=== PATIENT | male | born 1955 | race Caucasian/White ===

== ENCOUNTER 2019-10-21 13:00 | Outpatient (CLI) | payer MEDICAID | END 2019-10-21 13:01 | disposition short-term general hospital (02) | LOC: EMS 13:00 | PROVIDERS: ATTEND Surgery | DX: R10.13 Epigastric pain (principal); R11.2 Nausea with vomiting, unspecified; R42 Dizziness and giddiness; R61 Generalized hyperhidrosis | CPT/HCPCS: A0425; A0427; A0999 ==

== ENCOUNTER 2020-01-20 06:52 | Emergency (ER) | payer MEDICAID ==
[2020-01-20 07:17] LABS: BASOPHILS % (AUTO) 0.4 %; HGB - HEMOGLOBIN 14.6 g/dL (14.0-18.0); LYMPHOCYTES % (AUTO) 3.2 %; MEAN CORPUSCULAR HEMOGLOBIN 32.7 pg (27.0-31.0); MEAN PLATELET VOLUME 9.4 fL (7.4-11.4); MONOCYTES % (AUTO) 7.2 %; NEUTROPHILS % (AUTO) 88.3 %; PLT - PLATELET COUNT 243 10^3/uL (130-450); RED BLOOD COUNT 4.47 10^6/uL (4.70-6.10); RED CELL DISTRIBUTION WIDTH 14.3 % (12.0-15.0); WHITE BLOOD COUNT 23.3 x10^3/uL (4.8-10.8)
--- NOTE | 2020-01-20 07:21 | ED Physician Documentation ---
PD HPI MHE - Stated complaint Stated Complaint: MHE - Chief complaint Chief Complaint: MHE - History obtained from History obtained from: Patient, Police - History of Present Illness Primary symptom: Psychosis Timing - onset: Unknown Pain level max: 0 Pain level now: 0 Contributing factors: Substance abuse - ETOH, Substance abuse - drugs Recently seen: Not recently seen - Additional information Additional information: 64-year-old male presents to the emergency department stating that he is being stalked by a special agent task force that shoots him with tasers. He states that this occurs when he is in his RV. He states that first they flash a red light at him and then a blue light and that is when they "shoot". He states he went running through the [place] this morning to try to escape them. Patient states that he does use alcohol regularly. He also admits to marijuana use. He states he has not used methamphetamines in "a long time". Patient was acting erratically, therefore brought in by police. Review of Systems Unable to obtain: Confused, Uncooperative Constitutional: denies: Fever, Chills Respiratory: denies: Cough GI: denies: Vomiting, Diarrhea Skin: denies: Rash Musculoskeletal: denies: Neck pain, Back pain Neurologic: denies: Headache PD PAST MEDICAL HISTORY - Past Medical History Past Medical History: Yes HEENT: Chronic sinusitis - Past Surgical History Past Surgical History: No - Present Medications Home Medications: Ambulatory Orders Medication Instructions Recorded Confirmed No Known Home Medications 01/20/20 01/20/20 - Allergies Allergies/Adverse Reactions: Allergies Allergy/AdvReac Type Severity Reaction Status Date / Time No Known Drug Allergies Allergy Verified 01/20/20 07:08 - Social History Does the pt smoke?: Yes Smoking Status: Current every day smoker Does the pt drink ETOH?: Yes ETOH Use: Beer Does the pt have substance abuse?: Yes Substance Use and Type: Marijuana - Family History Family history: reports: Non contributory - Immunizations Immunizations are current?: Yes - POLST Patient has POLST: No PD ED PE NORMAL - Vitals Vital signs reviewed: Yes - General General: Alert and oriented X 3, No acute distress, Well developed/nourished - HEENT HEENT: PERRL, Moist mucous membranes - Neck Neck: Supple, no meningeal sign - Cardiac Cardiac: RRR, Strong equal pulses - Respiratory Respiratory: No respiratory distress, Clear bilaterally - Abdomen Abdomen: Soft, Non tender, Non distended - Derm Derm: Warm and dry - Extremities Extremities: No edema, Other (skin breakdown to both feet with no signs of infection) - Neuro Neuro: Alert and oriented X 3 - Psych Psych: Other (clear speech, flight of ideas present, paranoid.) Results - Vitals Vitals: Vital Signs - 24 hr 01/20/20 01/20/20 01/20/20 07:02 07:23 09:00 Temperature 36.6 C 37 C Heart Rate 91 92 81 Respiratory 14 20 18 Rate Blood Pressure 123/88 H 154/79 H 133/85 H O2 Saturation 93 93 98 01/20/20 01/20/20 14:15 18:44 Temperature 36.8 C 37.2 C Heart Rate 78 67 Respiratory 18 16 Rate Blood Pressure 119/73 126/71 O2 Saturation 96 96 Oxygen O2 Source Room air - Labs Labs: Laboratory Tests 01/20/20 01/20/20 01/20/20 07:11 07:11 07:11 WBC 23.3 H RBC 4.47 L Hgb 14.6 Hct 45.6 MCV 102.0 H MCH 32.7 H MCHC 32.0 RDW 14.3 Plt Count 243 MPV 9.4 Neut # (Auto) Not Reportable Lymph # (Auto) Not Reportable [place] # (Auto) Not Reportable Eos # (Auto) Not Reportable Baso # (Auto) Not Reportable Absolute Nucleated RBC Not Reportable Total Counted 100 Band Neuts % (Manual) 8 Abnorm Lymph % (Manual) 0 Nucleated RBC % Not Reportable Neutrophils # (Manual) 21.9 H Lymphocytes # (Manual) 0.5 L Monocytes # (Manual) 0.9 Eosinophils # (Manual) 0.0 Basophils # (Manual) 0.0 Differential Comment MANUAL DIFFERENTIAL Manual Slide Review WBC Morphology NORMAL APPEARANCE Platelet Estimate NORMAL (130-450,000) Platelet Morphology NORMAL APPEARANCE RBC Morph Micro Appear NORMAL APPEARANCE Sodium 136 Potassium 3.9 Chloride 99 L Carbon Dioxide 18 L Anion Gap 19.0 H BUN 39 H Creatinine 1.7 H Estimated GFR (MDRD) 41 L Glucose 84 Calcium 9.0 Total Bilirubin 1.2 H AST 42 ALT 26 Alkaline Phosphatase 106 Total Creatine Kinase Total Protein 7.8 Albumin 5.0 Globulin 2.8 Albumin/Globulin Ratio 1.8 Lipase 24 TSH 0.85 Urine Color Urine Clarity Urine pH Ur Specific [place] Urine Protein Urine Glucose (UA) Urine Ketones Urine Occult Blood Urine Nitrite Urine Bilirubin Urine Urobilinogen Ur Leukocyte Esterase Urine RBC Urine WBC Ur Squamous Epith Cells Urine Bacteria Ur Microscopic Review Urine Culture Comments Nasal Adenovirus (PCR) Nasal B. parapertussis DNA (PCR) Nasal Coronavir 229E PCR Nasal Coronavir HKU1 PCR Nasal Coronavir NL63 PCR Nasal Coronavir OC43 PCR Nasal Enterovir/Rhinovir PCR Nasal Influenza B PCR Nasal Influenza A PCR Nasal Parainfluen 1 PCR Nasal Parainfluen 2 PCR Nasal Parainfluen 3 PCR Nasal Parainfluen 4 PCR Nasal RSV (PCR) Nasal B.pertussis DNA PCR Nasal C.pneumoniae (PCR) Moustapha Human Metapneumo PCR Nasal M.pneumoniae (PCR) Nasal SARS-CoV-2 (PCR) Salicylates < 6.0 Urine Opiates Screen Ur Oxycodone Screen Urine Methadone Screen Ur Propoxyphene Screen Acetaminophen < 10 L Ur Barbiturates Screen Ur Tricyclics Screen Ur Phencyclidine Scrn Ur Amphetamine Screen U Methamphetamines Scrn U Benzodiazepines Scrn Urine Cocaine Screen U Cannabinoids Screen Ethyl Alcohol < 5.0 01/20/20 01/20/20 01/20/20 07:11 08:30 14:00 WBC RBC Hgb Hct MCV MCH MCHC RDW Plt Count MPV Neut # (Auto) Lymph # (Auto) [place] # (Auto) Eos # (Auto) Baso # (Auto) Absolute Nucleated RBC Total Counted Band Neuts % (Manual) Abnorm Lymph % (Manual) Nucleated RBC % Neutrophils # (Manual) Lymphocytes # (Manual) Monocytes # (Manual) Eosinophils # (Manual) Basophils # (Manual) Differential Comment Manual Slide Review WBC Morphology Platelet Estimate Platelet Morphology RBC Morph Micro Appear Sodium Potassium Chloride Carbon Dioxide Anion Gap BUN Creatinine Estimated GFR (MDRD) Glucose Calcium Total Bilirubin AST ALT Alkaline Phosphatase Total Creatine Kinase 960 H Total Protein Albumin Globulin Albumin/Globulin Ratio Lipase TSH Urine Color YELLOW Urine Clarity CLEAR Urine pH 5.0 Ur Specific [place] >=1.030 H Urine Protein NEGATIVE Urine Glucose (UA) NEGATIVE Urine Ketones 15 H Urine Occult Blood SMALL H Urine Nitrite NEGATIVE Urine Bilirubin NEGATIVE Urine Urobilinogen 0.2 (NORMAL) Ur Leukocyte Esterase NEGATIVE Urine RBC 0-5 Urine WBC 0-3 Ur Squamous Epith Cells NONE SEEN Urine Bacteria Rare Ur Microscopic Review INDICATED Urine Culture Comments NOT INDICATED Nasal Adenovirus (PCR) NOT DETECTED Nasal B. parapertussis DNA (PCR) NOT DETECTED Nasal Coronavir 229E PCR NOT DETECTED Nasal Coronavir HKU1 PCR NOT DETECTED Nasal Coronavir NL63 PCR NOT DETECTED Nasal Coronavir OC43 PCR NOT DETECTED Nasal Enterovir/Rhinovir PCR NOT DETECTED Nasal Influenza B PCR NOT DETECTED Nasal Influenza A PCR NOT DETECTED Nasal Parainfluen 1 PCR NOT DETECTED Nasal Parainfluen 2 PCR NOT DETECTED Nasal Parainfluen 3 PCR NOT DETECTED Nasal Parainfluen 4 PCR NOT DETECTED Nasal RSV (PCR) NOT DETECTED Nasal B.pertussis DNA PCR NOT DETECTED Nasal C.pneumoniae (PCR) NOT DETECTED Moustapha Human Metapneumo PCR NOT DETECTED Nasal M.pneumoniae (PCR) NOT DETECTED Nasal SARS-CoV-2 (PCR) NOT DETECTED Salicylates Urine Opiates Screen NEGATIVE Ur Oxycodone Screen NEGATIVE Urine Methadone Screen NEGATIVE Ur Propoxyphene Screen NEGATIVE Acetaminophen Ur Barbiturates Screen NEGATIVE Ur Tricyclics Screen NEGATIVE Ur Phencyclidine Scrn NEGATIVE Ur Amphetamine Screen POSITIVE H U Methamphetamines Scrn POSITIVE H U Benzodiazepines Scrn NEGATIVE Urine Cocaine Screen NEGATIVE U Cannabinoids Screen POSITIVE H Ethyl Alcohol 01/20/20 01/20/20 18:35 18:35 WBC 15.3 H RBC 3.92 L Hgb 13.0 L Hct 39.0 L MCV 99.5 H MCH 33.2 H MCHC 33.3 RDW 14.5 Plt Count 223 MPV 9.0 Neut # (Auto) Lymph # (Auto) [place] # (Auto) Eos # (Auto) Baso # (Auto) Absolute Nucleated RBC Total Counted Band Neuts % (Manual) Abnorm Lymph % (Manual) Nucleated RBC % Neutrophils # (Manual) Lymphocytes # (Manual) Monocytes # (Manual) Eosinophils # (Manual) Basophils # (Manual) Differential Comment Manual Slide Review Indicated WBC Morphology Platelet Estimate Platelet Morphology RBC Morph Micro Appear Sodium 134 L Potassium 4.3 Chloride 103 Carbon Dioxide 20 L Anion Gap 11.0 BUN 45 H Creatinine 1.3 H Estimated GFR (MDRD) 56 L Glucose 119 H Calcium 8.8 Total Bilirubin AST ALT Alkaline Phosphatase Total Creatine Kinase Total Protein Albumin Globulin Albumin/Globulin Ratio Lipase TSH Urine Color Urine Clarity Urine pH Ur Specific [place] Urine Protein Urine Glucose (UA) Urine Ketones Urine Occult Blood Urine Nitrite Urine Bilirubin Urine Urobilinogen Ur Leukocyte Esterase Urine RBC Urine WBC Ur Squamous Epith Cells Urine Bacteria Ur Microscopic Review Urine Culture Comments Nasal Adenovirus (PCR) Nasal B. parapertussis DNA (PCR) Nasal Coronavir 229E PCR Nasal Coronavir HKU1 PCR Nasal Coronavir NL63 PCR Nasal Coronavir OC43 PCR Nasal Enterovir/Rhinovir PCR Nasal Influenza B PCR Nasal Influenza A PCR Nasal Parainfluen 1 PCR Nasal Parainfluen 2 PCR Nasal Parainfluen 3 PCR Nasal Parainfluen 4 PCR Nasal RSV (PCR) Nasal B.pertussis DNA PCR Nasal C.pneumoniae (PCR) Moustapha Human Metapneumo PCR Nasal M.pneumoniae (PCR) Nasal SARS-CoV-2 (PCR) Salicylates Urine Opiates Screen Ur Oxycodone Screen Urine Methadone Screen Ur Propoxyphene Screen Acetaminophen Ur Barbiturates Screen Ur Tricyclics Screen Ur Phencyclidine Scrn Ur Amphetamine Screen U Methamphetamines Scrn U Benzodiazepines Scrn Urine Cocaine Screen U Cannabinoids Screen Ethyl Alcohol PD MEDICAL DECISION MAKING - ED course Complexity details: reviewed results, re-evaluated patient, considered differential, d/w patient ED course: 64-year-old male brought in by police today for acting erratically. He is positive for methamphetamines. Initially denied methamphetamine use, but now states that he last used 4 days ago. He did clear somewhat in the emergency department, but still states that he is been hijacked and is being tracked by a secret police force with [email or web address]. He still is extremely paranoid and is clear for psychiatric care. Patient did have leukocytosis and renal insufficiency, this was likely secondary to dehydration and methamphetamine use. IV fluids given. Labs improved with IV fluids. Patient will be signed out to the [facility] emergency department physician awaiting DCR evaluation Departure - Departure Clinical Impression: Dehydration, Renal insufficiency, Methamphetamine abuse, Paranoia Leukocytosis Qualifiers: Leukocytosis type: unspecified Qualified Code(s): D72.829 - Elevated white blood cell count, unspecified Psychosis Qualifiers: Psychosis type: unspecified psychosis type Qualified Code(s): F29 - Unspecified psychosis not due to a substance or known physiological condition Condition: Stable
[2020-01-20 07:23] LABS: ABNORMAL LYMPHS % (MANUAL) 0 %
[2020-01-20 07:34] LABS: ACETAMINOPHEN < 10 ug/mL (10-30); ALBUMIN/GLOBULIN RATIO 1.8 (1.0-2.2); ALKALINE PHOSPHATASE 106 IU/L (42-121); ALT ALANINE AMINOTRANSFERASE 26 IU/L (10-60); AST ASPARTATE AMINOTRANSFERASE 42 IU/L (10-42); BILIRUBIN,TOTAL 1.2 mg/dL (0.2-1.0); BUN - BLOOD UREA NITROGEN 39 mg/dL (6-20); CARBON DIOXIDE - CO2 18 mmol/L (21-32); CHLORIDE 99 mmol/L (101-111); CREATININE 1.7 mg/dL (0.6-1.2); GLUCOSE 84 mg/dL (70-100); LIPASE 24 U/L (22-51); SALICYLATE < 6.0 mg/dL; SODIUM 136 mmol/L (135-145); TOTAL PROTEIN 7.8 g/dL (6.7-8.2)
[2020-01-20] MEDS ORDERED: SODIUM CHLORIDE 0.9% 2,000 ML IV STA (07:52)
[2020-01-20 07:55] LABS: BAND NEUTROPHILS % (MANUAL) 8 %; DIFFERENTIAL COMMENT MANUAL DIFFERENTIAL; LYMPHOCYTES # (MANUAL) 0.5 10^3/uL (1.5-3.5); LYMPHOCYTES % (MANUAL) 2 %; MONOCYTES # (MANUAL) 0.9 10^3/uL (0.0-1.0); PLATELET ESTIMATE, MANUAL NORMAL (130-450,000) (NORMAL); PLATELET MORPHOLOGY NORMAL APPEARANCE (NORMAL); RBC MORPHOLOGY (MULTIPLE) NORMAL APPEARANCE (NORMAL)
[2020-01-20 09:34] LABS: C. PNEUMONIAE- RESP PCR PANEL NOT DETECTED
[2020-01-20 14:18] LABS: MUDS CUTOFF CONCENTRATIONS CUTOFF CONC BELOW:
[2020-01-20 14:20] LABS: BILIRUBIN,URINE NEGATIVE (NEGATIVE); GLUCOSE, URINE (UA) NEGATIVE (NEGATIVE); KETONES,URINE (UA) 15 mg/dL (NEGATIVE); LEUKOCYTE ESTERASE, URINE NEGATIVE (NEGATIVE); NITRITE,URINE NEGATIVE (NEGATIVE); OCCULT BLOOD,URINE SMALL (NEGATIVE); PROTEIN,URINE NEGATIVE (NEGATIVE); UROBILINOGEN,URINE 0.2 (NORMAL) E.U./dL (NORMAL)
[2020-01-20 14:21] LABS: CLARITY,URINE CLEAR (CLEAR)
[2020-01-20 14:29] LABS: BACTERIA,URINE Rare /HPF (None Seen); RBC,URINE 0-5 /HPF (0-5); SQUAMOUS EPITHELIAL CELL,UR NONE SEEN (<= Few)
[2020-01-20 14:33] LABS: AMPHETAMINE SCREEN,URINE POSITIVE (NEGATIVE); BENZODIAZEPINES SCREEN, URINE NEGATIVE (NEGATIVE); COCAINE SCREEN URINE NEGATIVE (NEGATIVE); METHADONE SCREEN, URINE NEGATIVE (NEGATIVE); METHAMPHETAMINES SCREEN, URINE POSITIVE (NEGATIVE); OPIATE SCREEN, URINE NEGATIVE (NEGATIVE); OXYCODONE SCREEN, URINE NEGATIVE (NEGATIVE); PROPOXYPHENE SCREEN, URINE NEGATIVE (NEGATIVE); TRICYCLIC ANTIDEPRESSANT,URINE NEGATIVE (NEGATIVE)
[2020-01-20] MEDS ORDERED: NICOTINE 14 MG PATCH TOP STA (16:37)
[2020-01-20 18:46] LABS: BASOPHILS % (AUTO) 0.3 %; EOSINOPHILS % (AUTO) 0.2 %; LYMPHOCYTES # (AUTO) 1.5 10^3/uL (1.5-3.5); LYMPHOCYTES % (AUTO) 9.5 %; MEAN CORPUSCULAR HEMOGLOBIN 33.2 pg (27.0-31.0); MEAN CORPUSCULAR HGB CONC 33.3 g/dL (32.0-36.0); MEAN CORPUSCULAR VOLUME 99.5 fL (80.0-94.0); MONOCYTES # (AUTO) 1.6 10^3/uL (0.0-1.0); MONOCYTES % (AUTO) 10.7 %; NEUTROPHILS % (AUTO) 78.6 %; PLT - PLATELET COUNT 223 10^3/uL (130-450); RED BLOOD COUNT 3.92 10^6/uL (4.70-6.10); RED CELL DISTRIBUTION WIDTH 14.5 % (12.0-15.0); WHITE BLOOD COUNT 15.3 x10^3/uL (4.8-10.8)
[2020-01-20 18:50] LABS: CALCIUM 8.8 mg/dL (8.5-10.3); CREATININE 1.3 mg/dL (0.6-1.2)
[2020-01-20 19:25] LABS: PLATELET ESTIMATE, MANUAL NORMAL (130-450,000) (NORMAL); PLATELET MORPHOLOGY NORMAL APPEARANCE (NORMAL); RBC MORPHOLOGY (MULTIPLE) NORMAL APPEARANCE (NORMAL)
[2020-01-20 19:26] LABS: DIFFERENTIAL COMMENT MANUAL=AUTO DIFF
[2020-01-21] MEDS ORDERED: IBUPROFEN 600 MG TABLET PO STA (02:06)
[2020-01-21] MEDS ORDERED: LORazepam 0.5 MG TABLET PO STA (02:06)
[2020-01-21 03:09] VITALS: BP 132/73
== END 2020-01-21 06:53 | disposition home or self-care (01) ==
LOC: ED 06:52
DX: F15.10 Other stimulant abuse, uncomplicated (principal); F10.10 Alcohol abuse, uncomplicated; F22 Delusional disorders; E86.0 Dehydration; N28.9 Disorder of kidney and ureter, unspecified; D72.829 Elevated white blood cell count, unspecified; I49.3 Ventricular premature depolarization; Z20.828 Contact with and (suspected) exposure to other viral communicable diseases; F17.200 Nicotine dependence, unspecified, uncomplicated
CPT/HCPCS: 0202U; 36415; 80048; 80053; 80306; 80307; 80320; 80329; 81001; 82550; 83690; 84443; 85025; 93005; 96360; 99283; 99284; A9270; 81003; 87086

== ENCOUNTER 2022-11-23 19:04 | Outpatient (CLI) | payer SELFPAY | END 2022-11-23 23:59 | disposition critical access hospital (66) | LOC: EMS 19:04 | DX: F10.90 Alcohol use, unspecified, uncomplicated (principal) | CPT/HCPCS: A0425; A0429 ==

== ENCOUNTER 2022-11-23 19:24 | Emergency (ER) | payer MEDICAID, OTHER ==
[2022-11-23] MEDS ORDERED: THIAMINE INJ 100 MG in SODIUM CHLORIDE 0.9% 50 ML IV STA (19:27)
--- NOTE | 2022-11-23 19:28 | ED Physician Documentation ---
PD HPI ALTERED MENTAL STATUS - Stated complaint Stated Complaint: FALL/ETOH - History obtained from History obtained from: Patient, EMS - Additional information Additional information: 66-year-old gentleman who is homeless drink more than usual tonight. He is a daily drinker admittedly but tonight drink vodka, fifth of it and that is not his usual. Subsequently had a couple of falls, no clear injury, but is intoxicated. He has no specific complaints but history is limited because of his intoxication. PD PAST MEDICAL HISTORY - Past Medical History HEENT: Chronic sinusitis - Past Surgical History Past Surgical History: No - Present Medications Home Medications: Ambulatory Orders Medication Instructions Recorded Confirmed No Known Home Medications 01/20/20 11/23/22 - Allergies Allergies/Adverse Reactions: Allergies Allergy/AdvReac Type Severity Reaction Status Date / Time No Known Drug Allergies Allergy Verified 11/23/22 19:39 - Social History Does the pt smoke?: Yes Smoking Status: Current every day smoker Does the pt drink ETOH?: Yes Does the pt have substance abuse?: Yes - Immunizations Immunizations are current?: Yes - POLST Patient has POLST: No PD ED PE NORMAL - Vitals Vital signs reviewed: Yes - General General: Other (He is disheveled, loud and intoxicated but friendly, slow to answer questions.) - HEENT HEENT: PERRL, EOMI (With nystagmus) - Neck Neck: Supple, no meningeal sign, No bony TTP - Cardiac Cardiac: RRR, No murmur - Respiratory Respiratory: No respiratory distress, Clear bilaterally - Abdomen Abdomen: Non tender - Male Male : Other (Incontinent of urine) - Neuro Eye Opening: Spontaneous Motor: Obeys Commands Verbal: Confused GCS Score: 14 Results - Vitals Vitals: Vital Signs - 24 hr 11/23/22 11/23/22 11/23/22 19:34 20:05 20:12 Temperature 35.9 C L Heart Rate 77 71 Respiratory 16 18 Rate Blood Pressure 120/81 H 137/75 H O2 Saturation 89 L 86 L 96 If not protocol 2 : Oxygen Flow, liters/minute 11/23/22 11/23/22 11/23/22 21:30 22:00 22:30 Temperature Heart Rate 71 72 74 Respiratory 16 15 16 Rate Blood Pressure 112/86 H 122/86 H 141/81 H O2 Saturation 94 94 98 If not protocol 2 2 2 : Oxygen Flow, liters/minute 11/23/22 11/23/22 11/23/22 23:00 23:45 23:53 Temperature Heart Rate 77 Respiratory 16 Rate Blood Pressure 118/81 H O2 Saturation 95 88 L 100 If not protocol 2 2 4 : Oxygen Flow, liters/minute 11/24/22 11/24/22 11/24/22 00:00 01:00 02:00 Temperature Heart Rate 76 73 73 Respiratory 16 16 16 Rate Blood Pressure 96/63 114/69 115/88 H O2 Saturation 98 95 100 If not protocol 4 2 2 : Oxygen Flow, liters/minute 11/24/22 11/24/22 11/24/22 03:00 04:00 04:30 Temperature Heart Rate 68 71 72 Respiratory 16 16 18 Rate Blood Pressure 107/60 152/89 H 134/88 H O2 Saturation 98 100 97 If not protocol 2 2 : Oxygen Flow, liters/minute 11/24/22 05:30 Temperature Heart Rate 88 Respiratory 18 Rate Blood Pressure 128/92 H O2 Saturation 100 If not protocol : Oxygen Flow, liters/minute Oxygen O2 Source Room air Oxygen Flow Rate 2 - Labs Labs: Laboratory Tests 11/23/22 11/23/22 11/23/22 19:39 19:39 20:01 WBC 10.4 RBC 4.60 L Hgb 15.0 Hct 46.3 MCV 100.7 H MCH 32.6 H MCHC 32.4 RDW 13.4 Plt Count 303 MPV 9.0 Neut # (Auto) Not Reportable Lymph # (Auto) Not Reportable [place] # (Auto) Not Reportable Eos # (Auto) Not Reportable Baso # (Auto) Not Reportable Absolute Nucleated RBC Not Reportable Total Counted 100 Band Neuts % (Manual) 0 Reactive Lymphs % (Man) 8 Abnorm Lymph % (Manual) 0 Nucleated RBC % Not Reportable Neutrophils # (Manual) 5.9 Lymphocytes # (Manual) 2.0 Monocytes # (Manual) 0.5 Eosinophils # (Manual) 1.7 H Basophils # (Manual) 0.3 H Differential Comment MANUAL DIFFERENTIAL Platelet Estimate NORMAL (130-450,000) Platelet Morphology NORMAL APPEARANCE RBC Morph Micro Appear 1+ MACROCYTOSIS Sodium 138 Potassium 4.4 Chloride 101 Carbon Dioxide 30 Anion Gap 7.0 BUN 38 H Creatinine 1.0 Estimated GFR (MDRD) 75 L Glucose 94 Calcium 9.5 Magnesium 2.3 Total Bilirubin 0.3 AST 18 ALT 16 Alkaline Phosphatase 97 Total Protein 7.3 Albumin 4.6 Globulin 2.7 Albumin/Globulin Ratio 1.7 Urine Opiates Screen NEGATIVE Ur Oxycodone Screen NEGATIVE Urine Methadone Screen NEGATIVE Ur Propoxyphene Screen NEGATIVE Ur Barbiturates Screen NEGATIVE Ur Tricyclics Screen NEGATIVE Ur Phencyclidine Scrn NEGATIVE Ur Amphetamine Screen NEGATIVE U Methamphetamines Scrn NEGATIVE U Benzodiazepines Scrn NEGATIVE Urine Cocaine Screen NEGATIVE U Cannabinoids Screen NEGATIVE Ethyl Alcohol 300.8 PD Medical Decision Making - ED course ED course: 66yo with etoh instox + fall. Will obs til sober CTH/Cspine. Care to Dr Palacios at 10p pending CTs and sobreity. Departure - Departure Disposition: 01 Home, Self Care Clinical Impression: Alcohol intoxication Qualifiers: Complication of substance-induced condition: uncomplicated Qualified Code(s): F10.920 - Alcohol use, unspecified with intoxication, uncomplicated Fall Qualifiers: Encounter type: initial encounter Qualified Code(s): W19.XXXA - Unspecified fall, initial encounter Condition: Good Record reviewed to determine appropriate education?: Yes Instructions: ED Alcohol Intoxication Comments: You are seen today for alcohol intoxication with a couple of falls. Your blood alcohol was 300. You should cut back your drinking. CT of the head and neck showed no bleeding in the brain. Call your doctor to arrange a follow-up appointment, make the next available appointment. In the interim, return anytime if worse or if new symptoms develop. Forms: PCP List Discharge Date/Time: 11/24/22 06:22
[2022-11-23 19:44] LABS: BASOPHILS % (AUTO) 0.5 %; EOSINOPHILS % (AUTO) 13.9 %; HCT - HEMATOCRIT 46.3 % (42.0-52.0); LYMPHOCYTES % (AUTO) 23.4 %; MEAN CORPUSCULAR HEMOGLOBIN 32.6 pg (27.0-31.0); MEAN CORPUSCULAR HGB CONC 32.4 g/dL (32.0-36.0); MEAN CORPUSCULAR VOLUME 100.7 fL (80.0-94.0); MONOCYTES % (AUTO) 5.3 %; NEUTROPHILS % (AUTO) 56.3 %; PLT - PLATELET COUNT 303 10^3/uL (130-450); RED CELL DISTRIBUTION WIDTH 13.4 % (12.0-15.0); WHITE BLOOD COUNT 10.4 x10^3/uL (4.8-10.8)
[2022-11-23 19:46] LABS: ABNORMAL LYMPHS % (MANUAL) 0 %; BAND NEUTROPHILS % (MANUAL) 0 %
[2022-11-23] MEDS ORDERED: THIAMINE 100 MG/1 ML 2 ML MDV ONE (19:53)
[2022-11-23 20:05] LABS: MUDS CUTOFF CONCENTRATIONS CUTOFF CONC BELOW:
[2022-11-23 20:05] LABS: ALBUMIN 4.6 g/dL (3.2-5.5); ALBUMIN/GLOBULIN RATIO 1.7 (1.0-2.2); BILIRUBIN,TOTAL 0.3 mg/dL (0.2-1.0); CALCIUM 9.5 mg/dL (8.5-10.3); ETOH - ETHANOL 300.8 mg/dL; MAGNESIUM 2.3 mg/dL (1.7-2.3); POTASSIUM 4.4 mmol/L (3.5-4.5); TOTAL PROTEIN 7.3 g/dL (6.4-8.9)
[2022-11-23 20:12] LABS: BASOPHILS # (MANUAL) 0.3 10^3/uL (0-0.1); BASOPHILS % (MANUAL) 3 %; EOSINOPHILS # (MANUAL) 1.7 10^3/uL (0-0.7); LYMPHOCYTES % (MANUAL) 11 %; MONOCYTES # (MANUAL) 0.5 10^3/uL (0.0-1.0); NEUTROPHILS # (MANUAL) 5.9 10^3/uL (1.5-6.6); REACTIVE LYMPHS % (MANUAL) 8 %
[2022-11-23 20:13] LABS: DIFFERENTIAL COMMENT MANUAL DIFFERENTIAL; PLATELET ESTIMATE, MANUAL NORMAL (130-450,000) (NORMAL); PLATELET MORPHOLOGY NORMAL APPEARANCE (NORMAL); RBC MORPHOLOGY (MULTIPLE) 1+ MACROCYTOSIS (NORMAL)
[2022-11-23 20:16] LABS: AMPHETAMINE SCREEN,URINE NEGATIVE (NEGATIVE); BARBITURATE SCREEN,UR NEGATIVE (NEGATIVE); BENZODIAZEPINES SCREEN, URINE NEGATIVE (NEGATIVE); COCAINE SCREEN URINE NEGATIVE (NEGATIVE); METHADONE SCREEN, URINE NEGATIVE (NEGATIVE); METHAMPHETAMINES SCREEN, URINE NEGATIVE (NEGATIVE); OPIATE SCREEN, URINE NEGATIVE (NEGATIVE); OXYCODONE SCREEN, URINE NEGATIVE (NEGATIVE); PROPOXYPHENE SCREEN, URINE NEGATIVE (NEGATIVE); THC CANNABINOID SCREEN, URINE NEGATIVE (NEGATIVE); TRICYCLIC ANTIDEPRESSANT,URINE NEGATIVE (NEGATIVE)
--- NOTE | 2022-11-23 21:27 | CT Report ---
PROCEDURE: HEAD WO INDICATIONS: poss head inj etoh TECHNIQUE: Noncontrast 4.5 mm thick angled axial sections acquired from the foramen magnum to the vertex. For r adiation dose reduction, the following was used: automated exposure control, adjustment of mA and/or kV according to patient size. COMPARISON: None. FINDINGS: Image quality: Excellent. CSF spaces: Basal cisterns are patent. No extra-axial fluid collections. Ventricles are normal in size and shape. Brain: No midline shift. No intracranial masses or hemorrhage. Klein-white matter interface is norm al. Skull and face: Calvarium and visualized facial bones are intact, without suspicious lesions. Sinuses: Mucosal thickening in bilateral ethmoid sinuses and maxillary sinuses are seen. Bilateral ma stoids are well aerated. IMPRESSION: No acute intracranial pathology. Bilateral maxillary and ethmoid sinusitis. No No acute skull fracture. Reviewed by: Josh Newton MD on 11/23/2022 9:25 PM PDT Approved by: Josh Newton MD on 11/23/2022 9:25 PM PDT Station ID: [id number]
--- NOTE | 2022-11-23 21:28 | CT Report ---
PROCEDURE: CERVICAL SPINE WO INDICATIONS: poss head inj etoh TECHNIQUE: Noncontrast 3 mm thick sections acquired from the skull base to the T4 level. Sagittal and coronal r eformats were then constructed. For radiation dose reduction, the following was used: automated exp osure control, adjustment of mA and/or kV according to patient size. COMPARISON: None. FINDINGS: Image quality: Excellent. Bones: No fractures or dislocations. Loss of disc height, degenerative endplate changes and bilater al facet hypertrophic changes are noted throughout cervical spine more notably at C5-6 and C6-7 level s causing [id number] central canal stenosis and bilateral neural foraminal narrowing. Visualize d superior ribs are intact. Soft tissues: Prevertebral soft tissues are normal in thickness. No paravertebral hematomas. No ap ical pneumothoraces. IMPRESSION: No acute, displaced fracture or traumatic subluxation. Degenerative disc disease throughout cervical spine as above. Reviewed by: Josh Cohen MD on 11/23/2022 9:26 PM PDT Approved by: Josh Cohen MD on 11/23/2022 9:26 PM PDT Station ID: [id number]
--- NOTE | 2022-11-23 21:53 | ED Physician Documentation ---
ED Addendum - Addendum Addendum: 11/23/22 21:52 Patient endorsed to me by Dr. Erickson at [address] of the head and neck were negative for acute pathology. Patient is clinically intoxicated at this time and we will monitor him overnight for sobriety. He likely can go home when the buses start running in the morning. Impression 1 alcohol intoxication 2 fall from standing Condition stable Disposition Home
[2022-11-24] MEDS ORDERED: IBUPROFEN 400 MG TABLET PO STA (05:58)
[2022-11-24 06:05] VITALS: BP 128/92; O2SAT 100
== END 2022-11-24 06:22 | disposition home or self-care (01) ==
LOC: EDUNIT# → ED 19:24
DX: Z04.3 Encounter for examination and observation following other accident (principal); F10.129 Alcohol abuse with intoxication, unspecified; Y90.8 Blood alcohol level of 240 mg/100 ml or more; F17.200 Nicotine dependence, unspecified, uncomplicated; Z59.00 Homelessness unspecified
CPT/HCPCS: 36415; 70450; 72125; 80053; 80306; 80320; 83735; 85025; 96365; 99283; 99285; A9270; J3411; J7040

== ENCOUNTER 2023-05-11 08:00 | Outpatient (CLI) | payer MEDICARE, OTHER | END 2023-05-11 08:01 | disposition E | LOC: EMS 08:00 | DX: V03.10XA Pedestrian on foot injured in collision with car, pick-up truck or van in traffic accident, initial encounter; Y92.414 Local residential or business street as the place of occurrence of the external cause ==